=== PATIENT | male | born 1970 | race Caucasian/White ===

== ENCOUNTER 2017-09-09 22:54 | Emergency (ER) | payer OTHER ==
[2017-09-09 23:53] LABS: BASOPHILS % 0.3 (0.0-1.5); EOSINOPHILS % 1.8 % (0.0-6.8); MEAN CORPUSCULAR HEMOGLOBIN 31.4 pg (28.0-34.0); MEAN CORPUSCULAR VOLUME 92.6 fl (80.0-100.0); MONOCYTES % 3.3 % (0.0-11.0); NEUTROPHILS # 7.3 # k/uL (1.4-7.7)
[2017-09-10 00:06] LABS: eGFR (African) > 60; eGFR (Non-African) > 60
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
[2017-09-10] MEDS ORDERED: KETOROLAC TROMETHAMINE 60 MG/2 ML VIAL IM ONE (00:16)
[2017-09-10 00:55] VITALS: BP 134/75
--- NOTE | 2017-09-10 01:02 | Diagnostic Imaging Report ---
Name: GERHARD CROSS : 68 Acc #: [id number] DOS : September 09, 2017 11:10:33 PM CDT Mod: DX Desc: SHOULDER 1 of 1 YASMIN MYRICK ([facility] [employer]) - ER [place] [id number] [facility] [address] [id number] Report Submission Date: September 09, 2017 11:29:40 PM CDT Patient Study Name: GERHARD CROSS Date: September 09, 2017 11:10:33 PM CDT Modality Type: DX Gender: M Description: SHOULDER : 68 Institution: [facility] Physician: YASMIN MYRICK ([facility]) - ER Right shoulder 3 views Clinical history pain Technique internal rotation external rotation scapular Y. Findings: There is no fracture dislocation. Bone density is normal. The right lung field and scapula are normal. Impression: Negative right shoulder Electronically signed on September 09, 2017 11:29:40 PM CDT by: Ravin ALONSO
== END 2017-09-10 00:30 | disposition home or self-care (01) ==
LOC: ED 22:54
DX: S40.011A Contusion of right shoulder, initial encounter (principal); Y93.55 Activity, bike riding
CPT/HCPCS: 73030; 80053; 80320; 85025; J1885; 96372; 99284; G0480